=== PATIENT | male | born 1945 | race Caucasian/White ===

== ENCOUNTER 2019-07-03 13:05 | Outpatient (CLI) | payer OTHER, MEDICARE | END 2019-07-03 21:12 | disposition home or self-care (01) | LOC: SRD 13:05 | PROVIDERS: ATTEND Internal Medicine | DX: M47.814 Spondylosis without myelopathy or radiculopathy, thoracic region (principal); J40 Bronchitis, not specified as acute or chronic | CPT/HCPCS: 71046-TC ==

== ENCOUNTER 2022-02-03 12:38 | Outpatient (CLI) | payer OTHER, MEDICARE | END 2022-02-03 20:40 | disposition home or self-care (01) | LOC: SRD 12:38 | PROVIDERS: ATTEND Internal Medicine | DX: J44.9 Chronic obstructive pulmonary disease, unspecified (principal); G47.33 Obstructive sleep apnea (adult) (pediatric); I50.9 Heart failure, unspecified; M81.0 Age-related osteoporosis without current pathological fracture; M47.814 Spondylosis without myelopathy or radiculopathy, thoracic region | CPT/HCPCS: 71046-TC ==

== ENCOUNTER 2022-06-10 11:44 | Outpatient (CLI) | payer OTHER, MEDICARE | END 2022-06-10 20:09 | disposition home or self-care (01) | LOC: SRD 11:44 | PROVIDERS: ATTEND Internal Medicine | DX: R91.8 Other nonspecific abnormal finding of lung field (principal); G47.33 Obstructive sleep apnea (adult) (pediatric); Z95.1 Presence of aortocoronary bypass graft; I10 Essential (primary) hypertension | CPT/HCPCS: 71046-TC ==